=== PATIENT | male | born 1955 | race Caucasian/White ===

== ENCOUNTER → 2016-06-30 | Outpatient (CLI) | payer OTHER ==
--- NOTE | 2016-06-30 17:13 | Diagnostic Imaging Report ---
INDICATION: Low back pain and right hip pain. DISCUSSION: Three views of the lumbosacral spine were obtained, no comparison. Mild dextroscoliosis of the lumbar spine. Mild degenerative disc disease is noted diffusely. No fracture or subluxation. Mild degenerative changes are noted within the bilateral sacroiliac joints. Soft tissues are unremarkable. IMPRESSION: 1. Mild degenerative changes of the lumbosacral spine with associated dextroscoliosis. No acute osseous abnormality identified. Dictated by: Dictated on workstation # [id number]
--- NOTE | 2016-06-30 17:14 | Diagnostic Imaging Report ---
INDICATION: Low back and right hip pain. DISCUSSION: AP view of the bilateral hips and oblique view of the right hip are obtained, no comparison. There is mild right and moderate left hip degenerative joint disease. No fracture or dislocation. Alignment is anatomic. Mild degenerative changes are noted within the bilateral sacroiliac joints. Soft tissues are unremarkable. IMPRESSION: 1. Mild right and moderate left hip degenerative joint disease. Dictated by: Dictated on workstation # [id number]
== END ==
LOC: RAD 16:11
PROVIDERS: ATTEND Chiropractor
DX: M54.5 Low back pain (principal); M25.551 Pain in right hip; M16.0 Bilateral primary osteoarthritis of hip
CPT/HCPCS: 72100; 73502